=== PATIENT | female | born 1970 | race Caucasian/White ===

== ENCOUNTER → 2017-04-22 | Outpatient (CLI) | payer OTHER | LOC: RAD 08:13 | DX: Z12.31 Encounter for screening mammogram for malignant neoplasm of breast (principal) ==

== ENCOUNTER 2017-12-21 17:00 | Emergency (ER) | payer OTHER ==
[~2017-12-21] VITALS: Ht 172.7 cm; Wt 111.6 kg
[2017-12-21 17:34] LABS: ABSOLUTE NEUTROPHILS 4.4 thou/uL (1.4-8.2); BASOPHILS 0.7 % (0.0-2.0); EOSINOPHILS 0.4 % (0.0-3.0); HEMATOCRIT 40.4 % (37.0-47.0); HEMOGLOBIN 13.3 gm/dL (12.0-15.0); LYMPHOCYTES 28.5 % (24.0-44.0); MCH 28.1 pg (26.0-34.0); MONOCYTES 6.1 % (1.0-8.0); PLATELET COUNT 352 thou/uL (150-400); POLYS 64.3 % (36.0-66.0); RBC 4.75 mil/uL (4.20-5.00); RDW 14.1 % (10.5-14.5); WBC 6.9 thou/uL (4.0-11.0)
[2017-12-21 17:45] LABS: ANION GAP 10 mmol/L (7-16); BUN 14 mg/dL (7-18); CALCIUM 9.6 mg/dL (8.5-10.1); CHLORIDE 106 mmol/L (98-107); CO2 26 mmol/L (21-32); GLUCOSE 121 mg/dL (74-106); POTASSIUM 4.3 mmol/L (3.5-5.1); SODIUM 142 mmol/L (136-145)
[2017-12-21 17:55] LABS: TROPONIN-I < 0.04 ng/mL (<0.06)
[2017-12-21] MEDS ORDERED: NAPROSYN500 MG PO (18:07)
== END 2017-12-21 18:13 | disposition home or self-care (01) ==
LOC: ER 17:00
PROVIDERS: Nurse Practitioner
DX: R07.89 Other chest pain (principal); F20.9 Schizophrenia, unspecified; Z88.0 Allergy status to penicillin; Z88.1 Allergy status to other antibiotic agents

== ENCOUNTER → 2018-08-26 | Outpatient (CLI) | payer OTHER ==
[~2018-08-26] MED LIST: NAPROSYN500 MG PO
== END ==
LOC: RAD 04:49
DX: Z12.31 Encounter for screening mammogram for malignant neoplasm of breast (principal)

== ENCOUNTER → 2019-10-19 | Outpatient (CLI) | payer OTHER | LOC: BC 07:41 | DX: Z12.31 Encounter for screening mammogram for malignant neoplasm of breast (principal) ==

== ENCOUNTER → 2021-03-06 | Outpatient (CLI) | payer OTHER | LOC: RAD 03-05 14:46 → ULTRA 11:13 → RAD 16:21 | PROVIDERS: ATTEND Family Medicine | DX: K80.20 Calculus of gallbladder without cholecystitis without obstruction (principal); R16.0 Hepatomegaly, not elsewhere classified ==